=== PATIENT | female | born 1945 | race Hispanic/Latino ===

== ENCOUNTER 2024-11-27 12:17 | Observation (INO) | payer OTHER ==
[2024-11-25 11:25] LABS: IMMATURE GRANULOCYTE ABSOLUTE 0.02 K/uL (0-1); NUCLEATED RED BLOOD CELLS 0.0 % (0.0-0.19); PLATELET COUNT (AUTO) 218 K/uL (130-400); RED BLOOD CELL COUNT(AUTO) 5.09 MIL/uL (4.00-5.50); RED CELL DISTRIBUTION WIDTH 13.7 % (11.0-15.5); WHITE BLOOD COUNT (AUTO) 4.8 K/uL (4.8-10.8)
[2024-11-25 11:32] LABS: CREATININE 0.5 mg/dL (0.5-1.0); GLOMERULAR FILTR. RATE CALC 96.0 mL/min (>90); GLUCOSE,RANDOM 114.0 mg/dL (70-105); SODIUM SERUM 142.0 mmol/L (136-145); UREA NITROGEN, BLOOD 11.0 mg/dL (7-18)
[2024-11-25 11:36] LABS: INR 1.03 (0.85-1.15)
[2024-11-25 11:41] LABS: APPEARANCE,URINE CLEAR (CLEAR); GLUCOSE, URINE (UA) NEGATIVE (NEGATIVE); LEUKOCYTE ESTERASE ,URINE 75 Leu/uL (NEGATIVE); NITRATE,URINE NEGATIVE (NEGATIVE); OCCULT BLOOD,URINE NEGATIVE (NEGATIVE)
[2024-11-25 11:45] LABS: ADD UA MICROSCOPIC YES
[2024-11-25 11:47] LABS: SQUAMOUS EPITHELIAL CELL,UR MOD /HPF (0-2)
[2024-11-25 12:09] VITALS: BP 157/82; PULSE 64; RESP 18; TEMP 97.9
--- NOTE | 2024-11-25 12:16 | NUR ---
PREOP ESTEBAN RT INSTRUCTED PT ON INCENTIVE SPIROMETRY
--- NOTE | 2024-11-25 12:36 | EKG ---
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
[~2024-11-27] VITALS: Ht 157.5 cm; Wt 76.7 kg
[2024-11-27] VITALS (9 sets, daily range): BP systolic 131–155; BP diastolic 74–90; PULSE 74–99; RESP 15–18; TEMP 97.2–97.4
[~2024-11-27 12:17] MED LIST: AMLO-104 PO; ATOR20TA65 PO; CETI10TA57 PO; CHOL12502 PO; DOCU-280 PO; GABA-529 PO; LACT10SO85 PO; MELO-106 PO; METO25TA6 PO; OMEP40CA21 PO
[2024-11-27] MEDS: LACTATED RINGERS 1000ML 1,000 ML IV ONE (14:26)
[2024-11-27] MEDS: CLINDAMYCIN IVPB 900MG/50ML 0 ML IV ONE (14:26)
[2024-11-27] MEDS ORDERED: VANCOMYCIN 500MG+NS 100ML 100 ML IV ONE (20:17)
[2024-11-27] MEDS ORDERED: MIDAZOLAM HCL 1 MG/ML 2ML VIAL ONE (20:52)
[2024-11-27] MEDS ORDERED: SUCCINYLCHOLINE CHLORIDE 20 MG/ML 10 ML VIAL ONE (20:52)
[2024-11-27] MEDS: TRANEXAMIC ACID 1000MG/10ML ONE ×2 (21:20→23:34)
[2024-11-27] MEDS ORDERED: GLYCOPYRROLATE 0.2 MG/ML 5 ML VIAL ONE (22:38)
--- NOTE | 2024-11-27 22:49 | OP ---
Operative Note: DATE OF PROCEDURE: 11/27/24 SURGEON: LUCINDA HERNANDEZ MD WHEEL BLOCKER: [Mook Hyde CFA] ANESTHESIA: [General anesthesia plus regional block] ANESTHESIOLOGIST/HORSE IDENTIFIER: [Diogenes Breen CRNA] PREOPERATIVE DIAGNOSIS: [Right knee osteoarthritis] POSTOPERATIVE DIAGNOSIS: [Same] IMPLANTS: [BIOMET VANGUARD. Femur size 57.5 right PS. Tibia size 71 fixed cruciate. Patella size 31 x 8 asymmetric. Tibial liner size 10 by 71/75 PS] PROCEDURE: [Right total knee arthroplasty] ESTIMATED BLOOD LOSS: [Less than 100 mL] INDICATIONS: [79-year-old female with a history of right knee osteoarthritis that has been treated conservatively but no longer responded to treatment. The patient is brought to the operating room for a total knee arthroplasty. Procedure understood, risks, benefits and possible complications and agreed to sign the consent form.] DESCRIPTION OF PROCEDURE: [After adequate general anesthesia was achieved and regional block obtained, the right lower extremity was prepped and draped in the usual manner previous placement of the tourniquet in the proximal thigh. The extremity was then elevated and exsanguinated with an Esmarch bandage and the tourniquet inflated to 250 mmHg the Esmarch band been then removed. With the knee in flexion a longitudinal incision was then made in the anterior aspect through the skin followed by dissection of the subcutaneous tissue. A bone infusion needle was then inserted just medial to the tibial tuberosity and through this needle we injected into the bone a solution of normal saline 50 mL mixed with 500 mg of vancomycin. The needle was removed. A paramedian approach was then made with the Bovie cautery cutting through the quadriceps tendon, medial patellar retinaculum and patellar tendon retinaculum. The retropatellar tendon fat was then excised and the soft tissue elements of the tibia were elevated subperiosteally and retractors were applied medially and laterally . The anterior and posterior cruciate ligaments were resected. With the use of a drill a starting hole was made in the distal femur entering the intramedullary canal and then after removal of the drill an intramedullary guide was inserted with a 5 degree valgus block that touched the distal femur and to this the distal femoral cutting guide was then applied anteriorly and was secured to the distal femur with the use of pins. The intramedullary guide was then removed and with the use of the oscillating saw we proceeded to resect the distal femur removing the fragments and the guide. The femoral sizer was then applied distally and drill holes were made removing the sizer and the 4-in-1 cutting block was then inserted and the anterior, posterior and chamfer cuts were made removing the fragments and the block. The PS cutting guide was then inserted and the intercondylar cut was made removing the fragment and the guide. The posterior cruciate ligament retractor was then inserted posterior to the tibia and this was brought forward proceeding then to apply the external tibial alignment guide and secured the proximal cutting guide to the tibia with the use of pins. With the use of the oscillating saw the proximal cut to the tibia tibia was made. The bone fragment was removed and the trial tibia plate was chosen. At this point the menisci were removed sharply and with the use of the curved osteotome the posterior osteophytes of the femur were removed. The trial components were then inserted at the femur and tibia with a trial tibial liner bringing the knee into extension noticing that the patient had a very stable knee in flexion, extension and with valgus and varus stress. The knee was mainta ined in extension and the patella was then addressed proceeding to measure its thickness and then with the use of the oscillating saw we removed eight mm from the articular surface and restored the height with application of a trial component after 3 peg holes were made. The patellofemoral ligament was removed and then the patellofemoral tracking was checked noticing to be normal. At this moment all the components were removed, the tibia after the metaphyseal defect was created and while cement was being mixed on the back table we proceeded to irrigate the joint with antibiotic solution and then cover the entry to the femoral canal with a bone plug. Once the cement was ready we proceeded to apply it first to the tibia surface inserting the final component and then to the femoral surface and inserted the final component removing the excess cement and then applying a trial liner bringing the knee into extension for compression. Then we proceeded to irrigate the patella surface and dried it applying then bone cement and the final patellar component was inserted and was secured with application of a clamp. The joint was irrigated with a warm diluted Betadine solution while the cement dried followed by irrigation with antibiotic solution. The trial liner was removed as well as the patellar clamp and we proceeded then to irrigate the posterior aspect of the joint to remove all the remaining debris and the final tibial liner was inserted and locked against the tibia. The range of motion was checked and noticed to be adequate with full extension and flexion, no laxity in valgus or varus stress and with adequate patellofemoral tracking. The patient had no anterior or posterior drawer. The tourniquet was then deflated and this was followed by hemostasis and the wound was then closed with approximation of the quadriceps tendon, patellar retinaculum and patellar tendon retinaculum with #1 Vicryl close stitches alternating with #1 Ethibond stitches, and closure of the subcutaneous tissue with 2-0 Monocryl inverted stit ches and the skin was closed with 3-0 Monocryl subcuticularly. The wound was covered with a suction dressing followed by application of an Erick bandage for compression and the drapes were then removed transferring the patient to the hospital bed and taken to recovery room for follow-up by anesthesia. There were no complications during the procedure.] LUCINDA HERNANDEZ MD Nov 27, 2024 22:49
[2024-11-27] MEDS: TRANEXAMIC ACID 1000MG/10ML IV ONE (22:50)
[2024-11-28] VITALS (22 sets, daily range): BP systolic 101–158; BP diastolic 53–96; PULSE 65–112; RESP 15–21; TEMP 97.1–99; O2SAT 96–99
[2024-11-28] MEDS: 0.9%NACL 1000ML 1,000 ML IV SCH (00:47)
[2024-11-28] MEDS ORDERED: LACTULOSE 20 GM/30 ML UDCUP PO PRN (02:00)
--- NOTE | 2024-11-28 06:39 | NUR ---
attempted to get patient up post op day one, upon standing patient felt " a bit dizzy" and was wobble in the knees and sat right back down. placed patient back in bed, stated to patient that we will attempt to help get up at a later time.
[2024-11-28] MEDS: FAMOTIDINE 20MG TAB PO SCH (08:09)
[2024-11-28] MEDS: ASPIRIN 81 MG EC TAB PO SCH (08:09)
--- NOTE | 2024-11-28 08:12 | PN ---
Ortho postop day one. This morning the patient is awake alert and oriented. She is still in bed. Discussed with the patient that they will assist her to a chair after she has been evaluated by Physical therapy and she does not have any symptoms of dizziness. Reports that she has got adequate pain control. Vital signs have been stable. Afebrile. Voiding on her own. I do not have any current postoperative laboratory results to review. We will assess once completed and results have been uploaded to we will computer. Reinforced incentive spirometry. Operative findings discussed with the patient. I have removed the Erick bandage and the zhao dressing is flashing green intact. Ice currently present to op-site. Anticipate discharge goal is home health/PT. Pending therapy this morning. Assessment: Status post right TKA. Plan: Continue with Dr. Cardozo TKA protocol and discharge planning Vitals/Labs Vital Signs Date Time Temp Pulse Resp B/P (MAP) Pulse Ox O2 Delivery O2 Flow Rate FiO2 11/28/24 07:39 97.9 104 18 124/86 97 Room Air 11/28/24 06:30 3.0 11/28/24 00:30 28 Medications Current Medications Lactated Ringer's 1,000 ml @ As Directed STK-MED ONCE IV Last administered on 11/27/24at 14:26; Start 11/27/24 at 13:52; Stop 11/27/24 at 13:52; Status DC Clindamycin HCl/ Dextrose 0 ml @ As Directed STK-MED ONCE IV; Start 11/27/24 at 13:52; Stop 11/27/24 at 13:52; Status DC Tranexamic Acid 1,000 mg STK-MED ONCE .ROUTE Last administered on 11/27/24at 21:20; Start 11/27/24 at 20:16; Stop 11/27/24 at 20:16; Status DC Cefazolin Sodium 1 gm STK-MED ONCE .ROUTE; Start 11/27/24 at 20:17; Stop 11/27/24 at 20:17; Status DC Vancomycin HCl 100 ml @ As Directed STK-MED ONCE IV; Start 11/27/24 at 20:17; Stop 11/27/24 at 20:17; Status DC Cefazolin Sodium 2 gm STK-MED ONCE .ROUTE Last administered on 11/27/24at 21:07; Start 11/27/24 at 20:21; Stop 11/27/24 at 20:21; Status DC Ondansetron HCl 4 mg STK-MED ONCE .ROUTE; Start 11/27/24 at 20:52; Stop 11/27/24 at 20:53; Status DC Dexamethasone Sodium Phosphate 10 mg STK-MED ONCE .ROUTE; Start 11/27/24 at 20:52; Stop 11/27/24 at 20:53; Status DC Succinylcholine Chloride 200 mg STK-MED ONCE .ROUTE; Start 11/27/24 at 20:52; Stop 11/27/24 at 20:53; Status DC Propofol 200 mg STK-MED ONCE IV; Start 11/27/24 at 20:52; Stop 11/27/24 at 20:53; Status DC Midazolam HCl 2 mg STK-MED ONCE .ROUTE; Start 11/27/24 at 20:52; Stop 11/27/24 at 20:53; Status DC Fentanyl Citrate 100 mcg STK-MED ONCE .ROUTE; Start 11/27/24 at 20:53; Stop 11/27/24 at 20:53; Status DC Rocuronium [place] 50 mg STK-MED ONCE .ROUTE; Start 11/27/24 at 20:59; Stop 11/27/24 at 20:59; Status DC Ropivacaine 150 mg STK-MED ONCE .ROUTE; Start 11/27/24 at 21:07; Stop 11/27/24 at 21:08; Status DC Cefazolin Sodium 3 gm STK-MED ONCE IRRIG Last administered on 11/27/24at 21:53; Start 11/27/24 at 21:53; Stop 11/27/24 at 22:08; Status DC Vancomycin HCl 500 mg STK-MED ONCE IJ Last administered on 11/27/24at 21:45; Start 11/27/24 at 21:45; Stop 11/27/24 at 22:08; Status DC Tranexamic Acid 1,000 mg STK-MED ONCE IV; Start 11/27/24 at 00:00; Stop 11/27/24 at 00:01; Status Cancel Glycopyrrolate 1 mg STK-MED ONCE .ROUTE; Start 11/27/24 at 22:38; Stop 11/27/24 at 22:38; Status DC Sodium Chloride 1,000 ml @ 100 mls/hr Q10H IV Last administered on 11/28/24at 00:47; Start 11/27/24 at 23:00; Stop 11/28/24 at 22:59 Polyethylene Glycol 17 gm DAILY PO; Start 11/28/24 at 09:00; Stop 12/28/24 at 08:59 Bisacodyl 10 mg DAILY PRN RC; Start 11/30/24 at 23:00; Stop 12/30/24 at 22:59 Ketorolac Tromethamine 15 mg Q6H PRN IV; Start 11/27/24 at 23:00; Stop 12/02/24 at 22:59 Famotidine 20 mg BID PO; Start 11/28/24 at 09:00; Stop 12/28/24 at 08:59 Tamsulosin HCl 0.4 mg DAILY PO; Start 11/28/24 at 09:00; Stop 12/28/24 at 08:59 Temazepam 15 mg HS PRN PO; Start 11/27/24 at 23:00; Stop 12/27/24 at 22:59 Ondansetron HCl 4 mg Q6H PRN IVP; Start 11/27/24 at 23:00; Stop 12/27/24 at 22:59 Diphenhydramine HCl 25 mg Q6H PRN IVP; Start 11/27/24 at 23:00; Stop 12/27/24 at 22:59 Cefazolin Sodium 2 gm Q8H IVPB; Start 11/27/24 at 23:00; Stop 11/28/24 at 00:54; Status DC Acetaminophen/ Hydrocodone Bitart Q4H PRN PO; Start 11/27/24 at 23:00; Stop 12/02/24 at 22:59 Aspirin 81 mg BID PO; Start 11/28/24 at 09:00; Stop 12/28/24 at 08:59 Tranexamic Acid 1,000 mg STK-MED ONCE IV Last administered on 11/27/24at 22:50; Start 11/27/24 at 22:50; Stop 11/27/24 at 22:52; Status DC Fentanyl Citrate 100 mcg STK-MED ONCE .ROUTE; Start 11/27/24 at 23:19; Stop at 23:19; Status DC Tranexamic Acid 1,000 mg STK-MED ONCE .ROUTE Last administered on 11/27/24at 23:34; Start 11/27/24 at 23:27; Stop 11/27/24 at 23:28; Status DC Fentanyl Citrate 100 mcg STK-MED ONCE .ROUTE Last administered on 11/27/24at 23:35; Start 11/27/24 at 23:33; Stop 11/27/24 at 23:33; Status DC Ondansetron HCl 4 mg STK-MED ONCE .ROUTE Last administered on 11/27/24at 23:57; Start 11/27/24 at 23:53; Stop 11/27/24 at 23:54; Status DC Cefazolin Sodium 2 gm Q8H IVPB Last administered on 11/28/24at 04:02; Start 11/28/24 at 04:00; Stop 11/28/24 at 12:01 Amlodipine/ Benazepril HCl 1 each DAILY PO; Start 11/28/24 at 09:00; Stop 12/28/24 at 08:59 Atorvastatin Calcium 20 mg HS PO; Start 11/28/24 at 21:00; Stop 12/28/24 at 20:59 Docusate Sodium 100 mg AD PRN PO; Start 11/28/24 at 02:00; Stop 12/28/24 at 01:59 Gabapentin 100 mg TID PO; Start 11/28/24 at 09:00; Stop 12/28/24 at 08:59 Lactulose 40 gm AD PRN PO; Start 11/28/24 at 02:00; Stop 12/28/24 at 01:59 Metoprolol Tartrate 25 mg BID PO; Start 11/28/24 at 09:00; Stop 12/28/24 at 08:59 Cetirizine HCl 10 mg DAILY PRN PO; Start 11/28/24 at 02:00; Stop 12/28/24 at 01:59 Ergocalciferol 50,000 unit QMO PO; Start 12/03/24 at 09:00; Stop 01/02/25 at 08:59 Pantoprazole Sodium 40 mg DAILY PO; Start 11/28/24 at 09:00; Stop 12/28/24 at 08:59 GORDO SALAZAR NP Nov 28, 2024 08:12
[2024-11-28] MEDS: HYDROcodone/APAP 5/325 1 TAB TABLET PO PRN (09:53)
--- NOTE | 2024-11-28 11:00 | NUR ---
MET W PATIENT AT BEDSIDE FOR DC PLANNING, PT UP TO CHAIR DENIYING PAIN. POD #1 FROM TKA. STATES FEELS GREAT. ORIGINALLY THOUGHT WOULD GO TO WORK BUT NOW WANTS TO GO STRAIGHT HOME HAS WKR AND SC, AND A RAMP; [facility] DONE REFERRAL SENT Addendum: 11/29/24 at 1826 by TAWANNA GALLARDO RN CM Amended: Links added.
--- NOTE | 2024-11-28 18:30 | NUR ---
cm note discussed case with Rod ghotra, and [facility] pt accepted with [facility], and pt has a walker in place. and a shower chair and a ramp. no other dc needs.
[2024-11-29 00:24] VITALS: BP 112/70; PULSE 95; RESP 19; TEMP 98.2
[2024-11-29 04:12] VITALS: BP 97/63; PULSE 104; RESP 18; TEMP 98.5
--- NOTE | 2024-11-29 06:29 | NUR ---
Patient assisted up to sit in chair. Denies pain. Tolerated well. Chair alarm on. Nurse call light within reach.
[2024-11-29 07:43] VITALS: BP 116/75; PULSE 94; RESP 18; TEMP 97.9
[2024-11-29 08:00] VITALS: O2SAT 95
--- NOTE | 2024-11-29 10:02 | PN ---
Ortho postop day two. This morning the patient is awake alert and oriented. Her is at the bedside. She is in no acute distress. Stating she is starting to feel a little bit more discomfort than yesterday. Vital signs have remained stable she has remained afebrile. She is voiding and passing gas. Pending to have BM. Dressing is intact. Distal neurovascular exam intact. Negative Homans. She progressed with physical therapy yesterday. She has been accepted to [facility]. Discussed with the patient that after physical therapy today we can discharge her. Assessment: Status post right total knee arthroplasty. Plan: Continue with the protocol and anticipate discharge today. Follow up in clinic as scheduled Vitals/Labs Vital Signs Date Time Temp Pulse Resp B/P (MAP) Pulse Ox O2 Delivery O2 Flow Rate FiO2 11/29/24 07:43 97.9 94 18 116/75 95 Nasal Cannula 3.0 11/28/24 20:43 21 Medications Current Medications Lactated Ringer's 1,000 ml @ As Directed STK-MED ONCE IV Last administered on 11/27/24at 14:26; Start 11/27/24 at 13:52; Stop 11/27/24 at 13:52; Status DC Clindamycin HCl/ Dextrose 0 ml @ As Directed STK-MED ONCE IV; Start 11/27/24 at 13:52; Stop 11/27/24 at 13:52; Status DC Tranexamic Acid 1,000 mg STK-MED ONCE .ROUTE Last administered on 11/27/24at 21:20; Start 11/27/24 at 20:16; Stop 11/27/24 at 20:16; Status DC Cefazolin Sodium 1 gm STK-MED ONCE .ROUTE; Start 11/27/24 at 20:17; Stop 11/27/24 at 20:17; Status DC Vancomycin HCl 100 ml @ As Directed STK-MED ONCE IV; Start 11/27/24 at 20:17; Stop 11/27/24 at 20:17; Status DC Cefazolin Sodium 2 gm STK-MED ONCE .ROUTE Last administered on 11/27/24at 21:07; Start 11/27/24 at 20:21; Stop 11/27/24 at 20:21; Status DC Ondansetron HCl 4 mg STK-MED ONCE .ROUTE; Start 11/27/24 at 20:52; Stop 11/27/24 at 20:53; Status DC Dexamethasone Sodium Phosphate 10 mg STK-MED ONCE .ROUTE; Start 11/27/24 at 20:52; Stop 11/27/24 at 20:53; Status DC Succinylcholine Chloride 200 mg STK-MED ONCE .ROUTE; Start 11/27/24 at 20:52; Stop 11/27/24 at 20:53; Status DC Propofol 200 mg STK-MED ONCE IV; Start 11/27/24 at 20:52; Stop 11/27/24 at 20:53; Status DC Midazolam HCl 2 mg STK-MED ONCE .ROUTE; Start 11/27/24 at 20:52; Stop 11/27/24 at 20:53; Status DC Fentanyl Citrate 100 mcg STK-MED ONCE .ROUTE; Start 11/27/24 at 20:53; Stop 11/27/24 at 20:53; Status DC Rocuronium [place] 50 mg STK-MED ONCE .ROUTE; Start 11/27/24 at 20:59; Stop 11/27/24 at 20:59; Status DC Ropivacaine 150 mg STK-MED ONCE .ROUTE; Start 11/27/24 at 21:07; Stop 11/27/24 at 21:08; Status DC Cefazolin Sodium 3 gm STK-MED ONCE IRRIG Last administered on 11/27/24at 21:53; Start 11/27/24 at 21:53; Stop 11/27/24 at 22:08; Status DC Vancomycin HCl 500 mg STK-MED ONCE IJ Last administered on 11/27/24at 21:45; Start 11/27/24 at 21:45; Stop 11/27/24 at 22:08; Status DC Tranexamic Acid 1,000 mg STK-MED ONCE IV; Start 11/27/24 at 00:00; Stop 11/27/24 at 00:01; Status Cancel Glycopyrrolate 1 mg STK-MED ONCE .ROUTE; Start 11/27/24 at 22:38; Stop 11/27/24 at 22:38; Status DC Sodium Chloride 1,000 ml @ 100 mls/hr Q10H IV Last administered on 11/28/24at 00:47; Start 11/27/24 at 23:00; Stop 11/28/24 at 22:59; Status DC Polyethylene Glycol 17 gm DAILY PO Last administered on 11/29/24at 08:05; Start 11/28/24 at 09:00; Stop 12/28/24 at 08:59 Bisacodyl 10 mg DAILY PRN RC; Start 11/30/24 at 23:00; Stop 12/30/24 at 22:59 Ketorolac Tromethamine 15 mg Q6H PRN IV Last administered on 11/29/24at 04:01; Start 11/27/24 at 23:00; Stop 12/02/24 at 22:59 Famotidine 20 mg BID PO Last administered on 11/28/24at 20:36; Start 11/28/24 at 09:00; Stop 11/29/24 at 06:55; Status DC Tamsulosin HCl 0.4 mg DAILY PO Last administered on 11/28/24at 08:09; Start 11/28/24 at 09:00; Stop 12/28/24 at 08:59 Temazepam 15 mg HS PRN PO; Start 11/27/24 at 23:00; Stop 12/27/24 at 22:59 Ondansetron HCl 4 mg Q6H PRN IVP; Start 11/27/24 at 23:00; Stop 12/27/24 at 22:59 Diphenhydramine HCl 25 mg Q6H PRN IVP; Start 11/27/24 at 23:00; Stop 12/27/24 at 22:59 Cefazolin Sodium 2 gm Q8H IVPB; Start 11/27/24 at 23:00; Stop 11/28/24 at 00:54; Status DC Acetaminophen/ Hydrocodone Bitart Q4H PRN PO Last administered on 11/29/24at 08:06; Start 11/27/24 at 23:00; Stop 12/02/24 at 22:59 Aspirin 81 mg BID PO Last administered on 11/29/24at 08:05; Start 11/28/24 at 09:00; Stop 12/28/24 at 08:59 Tranexamic Acid 1,000 mg STK-MED ONCE IV Last administered on 11/27/24at 22:50; Start 11/27/24 at 22:50; Stop 11/27/24 at 22:52; Status DC Fentanyl Citrate 100 mcg STK-MED ONCE .ROUTE; Start 11/27/24 at 23:19; Stop 11/27/24 at 23:19; Status DC Tranexamic Acid 1,000 mg STK-MED ONCE .ROUTE Last administered on 11/27/24at 23:34; Start 11/27/24 at 23:27; Stop 11/27/24 at 23:28; Status DC Fentanyl Citrate 100 mcg STK-MED ONCE .ROUTE Last administered on 11/27/24at 23:35; Start 11/27/24 at 23:33; Stop 11/27/24 at 23:33; Status DC Ondansetron HCl 4 mg STK-MED ONCE .ROUTE Last administered on 11/27/24at 23:57; Start 11/27/24 at 23:53; Stop 11/27/24 at 23:54; Status DC Cefazolin Sodium 2 gm Q8H IVPB Last administered on 11/28/24at 11:24; Start 11/28/24 at 04:00; Stop 11/28/24 at 12:01; Status DC Amlodipine/ Benazepril HCl 1 each DAILY PO Last administered on 11/29/24at 08:05; Start 11/28/24 at 09:00; Stop 12/28/24 at 08:59 Atorvastatin Calcium 20 mg HS PO Last administered on 11/28/24at 20:36; Start 11/28/24 at 21:00; Stop 12/28/24 at 20:59 Docusate Sodium 100 mg AD PRN PO; Start 11/28/24 at 02:00; Stop 11/29/24 at 06:55; Status DC Gabapentin 100 mg TID PO Last administered on 11/29/24at 08:05; Start 11/28/24 at 09:00; Stop 12/28/24 at 08:59 Lactulose 40 gm AD PRN PO; Start 11/28/24 at 02:00; Stop 11/29/24 at 06:55; Status DC Metoprolol Tartrate 25 mg BID PO Last administered on 11/29/24at 08:05; Start 11/28/24 at 09:00; Stop 12/28/24 at 08:59 Cetirizine HCl 10 mg DAILY PRN PO; Start 11/28/24 at 02:00; Stop 12/28/24 at 01:59 Ergocalciferol 50,000 unit QMO PO; Start 12/03/24 at 09:00; Stop 01/02/25 at 08:59 Pantoprazole Sodium 40 mg DAILY PO Last administered on 11/28/24at 08:09; Start 11/28/24 at 09:00; Stop 12/28/24 at 08:59 GORDO SALAZAR NP Nov 29, 2024 10:02
[2024-11-29 11:17] VITALS: BP 113/61; PULSE 64; RESP 18; TEMP 98.6
[2024-11-29] MEDS ORDERED: HYDR-4060 PO (12:03)
[2024-11-29] MEDS ORDERED: AEC81 PO (12:03)
--- NOTE | 2024-11-29 12:05 | DS ---
DISCHARGE SUMMARY [ ] LUCINDA HERNANDEZ MD Nov 29, 2024 12:05
--- NOTE | 2024-11-29 14:01 | NUR ---
PATIENT DISCHARGED HOME WITH HOME HEALTH ID BAND AN IV REMOVED. DISCHARGE INSTRUCTIONS EXPLAINED AND GIVEN TO PATIENT. PATIENT VERBALIZED UNDERSTANDING. BELONGINGS PACKED AND TAKEN BY PATIENT. WHEELED DOWN TO PRIVTE CAR.
[2024-12-03] MEDS ORDERED: ERGOCALCIFEROL (VITAMIN D2) 50,000 UNIT CAPSULE PO SCH (09:00)
== END 2024-11-29 13:45 | disposition home or self-care (01) ==
LOC: DAH 12:17 → DAHIP 22:41 → 4AH 11-28 00:14
PROVIDERS: ADMIT Orthopaedic Surgery; ATTEND Orthopaedic Surgery
DX: M17.11 Unilateral primary osteoarthritis, right knee (principal); E66.9 Obesity, unspecified; I10 Essential (primary) hypertension; E78.00 Pure hypercholesterolemia, unspecified; Z79.899 Other long term (current) drug therapy; Z90.710 Acquired absence of both cervix and uterus; Z86.2 Personal history of diseases of the blood and blood-forming organs and certain disorders involving the immune mechanism; Z88.0 Allergy status to penicillin; Z88.5 Allergy status to narcotic agent; Z68.30 Body mass index [BMI] 30.0-30.9, adult
CPT/HCPCS: 80048; 85025; 85610; 85730; 87086; 81001; 36415; 93005; 87641; 27447; 88311; 88305; 96365; 96366; 97161; 97116 ×3; 97530 ×4; 96375; G0378 ×39; A4663; J7120 ×2; A4600; J3010 ×3; J0690 ×5; J3490 ×5; J1100; J0330; J2250; J2704; J2405 ×2; J2795; J3373 ×2; A9272; A4649 ×3; A4930 ×3; C1713; C1776; A5120; A4215; A4213; A4222; A4223; A4221; A4216; J7030; J1885